=== PATIENT | male | born 1945 | race Asian ===

== ENCOUNTER 2020-09-22 17:19 | Inpatient (IN) | payer MEDICARE, OTHER ==
[~2020-09-22] VITALS: Ht 167.6 cm; Wt 67.8 kg
--- NOTE | 2020-09-22 17:24 | NUR ---
MANN MIRELES FROM [facility] DUE TO ABNORMAL LAB RESULTS: BUN/SXL=923/3.92 AND MIVDPY=112. TO ER BED 9, HOOKED TO NCR OPERATOR, BP CUFF AND POX. PATIENT NOTED W TRACHE HOOKED TO VENT WITH SETTINGS OF AC 10, VT 500, O2 40%, AND PEEP OF 5.0. CHANGED TO HOSP GOWN, PATIENT NOTED WITH JOSUÉ MIDLINE, PATENT AND FLUSHING, G-TUBE AND SPIVEY CATHETER. WARM BLANKET PROVIDED, PATIENT AAO x 0, BREATHING EVEN AND UNLABORED, NAD NOTED. DR SULLIVAN AT BEDSIDE
--- NOTE | 2020-09-22 17:49 | NUR ---
FOURCHETTE SEWER AT BEDSIDE
[2020-09-22 18:09] LABS: BASOPHILS % (AUTO) 0.2 % (0.0-2.0); EOSINOPHILS % (AUTO) 17.1 % (0.0-6.0); HEMATOCRIT 21 % (39-51); HEMOGLOBIN 7.1 g/dL (13.5-17.5); LYMPHOCYTES # (AUTO) 0.4 /CMM (0.8-4.8); LYMPHOCYTES % (AUTO) 4.5 % (20.0-44.0); MEAN CORPUSCULAR HGB CONC 33 g/dl (31.0-36.0); MEAN CORPUSCULAR VOLUME 79 fL (80-96); MONOCYTES # (AUTO) 0.8 /CMM (0.1-1.30); NEUTROPHILS # (AUTO) 6.7 /CMM (1.8-8.9); NEUTROPHILS % (AUTO) 70.2 % (43.0-81.0); PLATELET COUNT (AUTO) 459 /CMM (150-450); RED BLOOD CELL COUNT(AUTO) 2.71 MIL/uL (4.5-6.0); WHITE BLOOD COUNT (AUTO) 9.6 K/uL (4.3-11.0)
[2020-09-22 18:13] LABS: ALANINE AMINOTRANSFERASE 23 U/L (12-78); ALKALINE PHOSPHATASE 183 U/L (46-116); ASPARTATE AMINOTRANSFERASE 45 U/L (15-37); BILIRUBIN,TOTAL 0.2 mg/dL (0.2-1.0); CALCIUM, SERUM 9.6 mg/dL (8.5-10.1); CARBON DIOXIDE 22 mmol/L (21-32); CHLORIDE 87 mmol/L (98-107); CREATININE 4.4 mg/dL (0.6-1.3); GLUCOSE 98 mg/dL (74-106); POTASSIUM 4.9 mmol/L (3.5-5.1)
--- NOTE | 2020-09-22 18:17 | NUR ---
[facility] CALLED CONSERVATION PLANNER PAGED.
[2020-09-22 18:18] LABS: SODIUM SERUM 117 mmol/L (136-145); UREA NITROGEN, BLOOD 184 mg/dL (7-18)
[2020-09-22 18:19] LABS: ALBUMIN 0.9 g/dL (3.4-5.0)
[2020-09-22] MEDS ORDERED: IV NS 0.9% 1,000 ML IV ONE (18:30)
--- NOTE | 2020-09-22 18:42 | NUR ---
[facility] CALLED DIGITAL MEDIA REPRESENTATIVE PAGED SECOND TIME
[2020-09-22 19:07] LABS: BAND % (MANUAL) 2 % (0.0-5.0); EOSINOPHILS % (MANUAL) 18 % (0-4); LYMPHOCYTES % (MANUAL) 9 % (16-48); MONOCYTES % (MANUAL) 5 % (0-11.0); NEUTROPHILS % (MANUAL) 66 (42-76)
--- NOTE | 2020-09-22 19:07 | NUR ---
[facility] CALL GUIDE TOUR PAGED NEW PROVIDER IS CURRY
--- NOTE | 2020-09-22 19:21 | NUR ---
REPORT GIVEN TO TRIP MONTENEGRO FOR AMARJIT
--- NOTE | 2020-09-22 19:36 | NUR ---
ASSUMED CARE. PT AAOX1, PT TOLERATING CURRENT VENT SETTING AC-10, TV-500, FIO2-40%, PEEP-5. NO ACUTE DISTRESS NOTED, RESP EVEN AND UNLABORED. NO PAIN OR DISCOMFORT NOTED AT THIS TIME. PT REMAINS ON CARDIAC MONITORING, CONTINUOUS POX. CALL LIGHT WITHIN REACH. WILL CONTINUE TO MONITOR PT CLOSELY.
[2020-09-22] MEDS ORDERED: ACETAMINOPHEN 325 MG TABLET PO PRN (22:00)
[2020-09-22] MEDS ORDERED: ONDANSETRON HCL/PF 4 MG/2 ML VIAL IVP PRN (22:00)
[2020-09-22] MEDS ORDERED: MAGNESIUM HYDROXIDE 30 ML UDC PO PRN (22:00)
[2020-09-22] MEDS ORDERED: Z GUARD REMEDY 2 OZ OINT TP PRN (22:00)
[2020-09-22] MEDS ORDERED: ZOLPIDEM TARTRATE 5 MG TABLET PO PRN (22:00)
[2020-09-22] MEDS ORDERED: CEFTRIAXONE 1 G in IV D5W 50 ML IV STA (22:06)
--- NOTE | 2020-09-22 22:06 | NUR ---
TOTAL PT CARE DONE. REPOSITIONED PT FOR COMFORT. SUCTIONED PT ORALLY.
[2020-09-22] MEDS ORDERED: CEFTRIAXONE 1GM BAG (ER ONLY) 50 ML IV ONE (22:28)
[2020-09-22] MEDS ORDERED: HEPARIN SODIUM, PORCINE 5000 UNITS/1 ML VIAL ONE (22:29)
[2020-09-22 22:36] LABS: IRON, SERUM 24 ug/dl (50-175); TOTAL IRON BINDING CAPACITY 102 ug/dl (250-450)
[2020-09-22] MEDS: HEPARIN SODIUM, PORCINE 5000 UNITS/1 ML VIAL SQ SCH (22:39)
[2020-09-22 22:47] LABS: BILIRUBIN,URINE NEGATIVE (NEGATIVE); COLOR,URINE YELLOW (YELLOW); LEUKOCYTE ESTERASE ,URINE SMALL (NEGATIVE); NITRITE, URINE NEGATIVE (NEGATIVE); PROTEIN,URINE 30 mg/dl (NEGATIVE); UGLUCOSE NEGATIVE (NEGATIVE); UROBILINOGEN,URINE 0.2 EU/dL (0.2)
[2020-09-22 22:55] LABS: BACTERIA,URINE 2+ /HPF (None Seen); RBC,URINE 51-80 /HPF (0-2); SQUAMOUS EPITHELIAL CELL,UR Few /HPF (None Seen); WBC,URINE 51-80 /HPF (0-3)
[2020-09-22 22:56] LABS: MUCUS,URINE Few /LPF (None Seen); URINE AMORPHOUS URATE Many /HPF (None Seen)
--- NOTE | 2020-09-22 23:49 | NUR ---
RT pt received on mechanical vent with current settings. vent plugged in to red outlet. trached, portex 6 cuffed. spare trach and ambu bag at [facility]. no sob, no resp distress. trach secure. thick caceres secretions suctioned via trach. alarms on and audible. will continue to monitor.
[2020-09-23 00:56] LABS: BASOPHILS % (AUTO) 0.2 % (0.0-2.0); EOSINOPHILS % (AUTO) 15.8 % (0.0-6.0); HEMATOCRIT 23 % (39-51); HEMOGLOBIN 7.5 g/dL (13.5-17.5); LYMPHOCYTES # (AUTO) 0.6 /CMM (0.8-4.8); MEAN CORPUSCULAR HGB CONC 33 g/dl (31.0-36.0); MEAN CORPUSCULAR VOLUME 78 fL (80-96); MONOCYTES # (AUTO) 0.8 /CMM (0.1-1.30); MONOCYTES % (AUTO) 8.1 % (2.0-12.0); NEUTROPHILS # (AUTO) 6.8 /CMM (1.8-8.9); NEUTROPHILS % (AUTO) 69.9 % (43.0-81.0); PLATELET COUNT (AUTO) 474 /CMM (150-450); RED BLOOD CELL COUNT(AUTO) 2.92 MIL/uL (4.5-6.0); WHITE BLOOD COUNT (AUTO) 9.7 K/uL (4.3-11.0)
[2020-09-23 01:11] LABS: CALCIUM, SERUM 9.6 mg/dL (8.5-10.1); CARBON DIOXIDE 23 mmol/L (21-32); CHLORIDE 90 mmol/L (98-107); CREATININE 4.5 mg/dL (0.6-1.3); GLUCOSE 88 mg/dL (74-106); POTASSIUM 5.1 mmol/L (3.5-5.1)
[2020-09-23 01:15] LABS: SODIUM SERUM 120 mmol/L (136-145); UREA NITROGEN, BLOOD 186 mg/dL (7-18)
[2020-09-23 01:43] LABS: FERRITIN 2502 ng/mL (8-388)
--- NOTE | 2020-09-23 02:18 | NUR ---
PT RESTING QUIETLY, NO ACUTE DISTRESS NOTED, RESP EVEN AND UNLABORE. NO PAIN OR DISCOMFORT NOTED AT THIS TIME. CALL LIGHT WITHIN REACH. WILL CONTINUE TO MONITOR PT CLOSELY.
--- NOTE | 2020-09-23 03:50 | NUR ---
PT ASLEEP, NO ACUTE DISTRESS NOTED, RESP EVEN AND UNLABORED. CALL LIGHT WITHIN REACH.
[2020-09-23] MEDS: IV NS 0.9% 1,000 ML IV PRN ×2 (04:18→14:01)
--- NOTE | 2020-09-23 05:00 | NUR ---
REPOSITIONED PT FOR COMFORT. ORAL AND INLUINE SUCTIONED PT. NO PAIN OR DISCOMFORT NOTED. NO ACUTE DISTRESS NOTED, RESP EVEN AND UNLABORED. CALL LIGHT WIHTIN REACH.
[2020-09-23 05:35] LABS: BASOPHILS % (AUTO) 0.2 % (0.0-2.0); EOSINOPHILS % (AUTO) 16.5 % (0.0-6.0); HEMATOCRIT 22 % (39-51); HEMOGLOBIN 7.1 g/dL (13.5-17.5); LYMPHOCYTES # (AUTO) 0.5 /CMM (0.8-4.8); LYMPHOCYTES % (AUTO) 5.6 % (20.0-44.0); MEAN CORPUSCULAR HGB CONC 33 g/dl (31.0-36.0); MEAN CORPUSCULAR VOLUME 79 fL (80-96); MONOCYTES # (AUTO) 0.7 /CMM (0.1-1.30); MONOCYTES % (AUTO) 7.9 % (2.0-12.0); NEUTROPHILS # (AUTO) 6.5 /CMM (1.8-8.9); NEUTROPHILS % (AUTO) 69.8 % (43.0-81.0); PLATELET COUNT (AUTO) 445 /CMM (150-450); RED BLOOD CELL COUNT(AUTO) 2.74 MIL/uL (4.5-6.0); WHITE BLOOD COUNT (AUTO) 9.3 K/uL (4.3-11.0)
[2020-09-23 05:51] LABS: CHOLESTEROL 63 mg/dL (<200); HDL CHOLESTEROL 27 mg/dL (40-60); TRIGLYCERIDES 70 mg/dL (30-150)
[2020-09-23 05:52] LABS: ALANINE AMINOTRANSFERASE 25 U/L (12-78); ALKALINE PHOSPHATASE 140 U/L (46-116); ASPARTATE AMINOTRANSFERASE 45 U/L (15-37); BILIRUBIN,DIRECT 0.1 mg/dL (0.0-0.2); BILIRUBIN,TOTAL 0.3 mg/dL (0.2-1.0); CALCIUM, SERUM 8.9 mg/dL (8.5-10.1); CARBON DIOXIDE 20 mmol/L (21-32); CHLORIDE 91 mmol/L (98-107); CREATININE 4.6 mg/dL (0.6-1.3); GLUCOSE 79 mg/dL (74-106); MAGNESIUM 2.8 mg/dL (1.8-2.4); PHOSPHORUS 7.1 mg/dL (2.5-4.9); POTASSIUM 5.1 mmol/L (3.5-5.1); SODIUM SERUM 121 mmol/L (136-145)
[2020-09-23 05:55] LABS: ALBUMIN 0.9 g/dL (3.4-5.0); UREA NITROGEN, BLOOD 187 mg/dL (7-18)
[2020-09-23 06:02] LABS: LDL 36 mg/dL (0-99)
--- NOTE | 2020-09-23 07:49 | NUR ---
REPORT GIVEN TO AM SHIFT LAN THOMSON
[2020-09-23] MEDS ORDERED: HEPARIN SODIUM, PORCINE 5000 UNITS/1 ML VIAL ONE (08:31)
[2020-09-23] MEDS: HEPARIN SODIUM, PORCINE 5000 UNITS/1 ML VIAL SQ SCH (08:39)
--- NOTE | 2020-09-23 08:49 | NUR ---
PATIENT RESTING, VITALS STABLE. VENT SETTINGS TOLERATING WELL. CONTINUE ON IVF. NO DISTRESS NOTED.
--- NOTE | 2020-09-23 10:00 | NUR ---
PATIENT TURNED AND REPOSITIONED, NO DISTRESS NOTED.
[2020-09-23] MEDS ORDERED: PANTOPRAZOLE 40 MG VIAL IV SCH (14:00)
--- NOTE | 2020-09-23 14:01 | NUR ---
PATIENT TURNED AND REPOSITIONED, NO DISTRESS NOTED. PERICARE PROVIDED.
[2020-09-23] MEDS ORDERED: PANTOPRAZOLE 40 MG VIAL ONE (14:06)
--- NOTE | 2020-09-23 17:23 | NUR ---
PATIENT RESTING, IV FLUIDS INFUSING. NO DISTRESS NOTED.
--- NOTE | 2020-09-23 19:45 | NUR ---
ASSUMED CARE. PT AAOX1, O2 SAT 100%. PT TOLERATING CURRENT VENT SETTING AC-10, TV-500, FIO2-40%, PEEP-5. NO ACUTE DISTRESS NOTED, RESP EVEN AND UNLABORED. NO PAIN OR DISCOMFORT NOTED AT THIS TIME. PT REMAINS ON CARDIAC MONITORING, CONTINUOUS POX. CALL LIGHT WITHIN REACH. WILL CONTINUE TO MONITOR PT CLOSELY. REPOSITIONED PT FOR COMFORT.
--- NOTE | 2020-09-23 20:56 | NUR ---
TO PT CARE DONE. PERICARE PROVIDED. PATIENT TURNED AND REPOSITIONED, NO DISTRESS NOTED.
[2020-09-23] MEDS ORDERED: CEFTRIAXONE 1 G in IV D5W 50 ML IV SCH (21:00)
[2020-09-23] MEDS ORDERED: CEFEPIME 1 GM in IV D5W 50 ML IV ONE (22:00)
[2020-09-23] MEDS ORDERED: CEFEPIME 1 GM VIAL ONE (22:03)
--- NOTE | 2020-09-24 00:03 | NUR ---
PERICARE PROVIDED. PATIENT TURNED AND REPOSITIONED, NO DISTRESS NOTED.
--- NOTE | 2020-09-24 01:43 | NUR ---
RT pt received on mechanical vent with current settings. vent plugged in to red outlet. alarms on and audible. trached, portex 6 cuffed. spare trach and ambu bag at [facility]. trach secure. thick caceres secretions suctioned via trach. no sob, no resp distress. will continue to monitor.
--- NOTE | 2020-09-24 02:16 | NUR ---
PT ASLEEP, NO ACUTE DISTRESS NOTED, RESP EVEN AND UNLABORED. CALL LIGHT WITHIN REACH.
[2020-09-24] MEDS: IV NS 0.9% 1,000 ML IV PRN ×2 (04:59→19:40)
[2020-09-24 05:37] LABS: BASOPHILS % (AUTO) 0.1 % (0.0-2.0); EOSINOPHILS % (AUTO) 11.1 % (0.0-6.0); HEMATOCRIT 25 % (39-51); HEMOGLOBIN 8.2 g/dL (13.5-17.5); LYMPHOCYTES # (AUTO) 0.5 /CMM (0.8-4.8); LYMPHOCYTES % (AUTO) 4.7 % (20.0-44.0); MEAN CORPUSCULAR HGB CONC 33 g/dl (31.0-36.0); MEAN CORPUSCULAR VOLUME 79 fL (80-96); MONOCYTES # (AUTO) 0.5 /CMM (0.1-1.30); NEUTROPHILS # (AUTO) 8.4 /CMM (1.8-8.9); NEUTROPHILS % (AUTO) 79.1 % (43.0-81.0); PLATELET COUNT (AUTO) 567 /CMM (150-450); RED BLOOD CELL COUNT(AUTO) 3.18 MIL/uL (4.5-6.0); WHITE BLOOD COUNT (AUTO) 10.7 K/uL (4.3-11.0)
[2020-09-24 05:59] LABS: CALCIUM, SERUM 8.9 mg/dL (8.5-10.1); CARBON DIOXIDE 17 mmol/L (21-32); CHLORIDE 93 mmol/L (98-107); CREATININE 4.5 mg/dL (0.6-1.3); GLUCOSE 72 mg/dL (74-106); POTASSIUM 5.3 mmol/L (3.5-5.1); SODIUM SERUM 124 mmol/L (136-145)
[2020-09-24 06:00] LABS: PHOSPHORUS 7.9 mg/dL (2.5-4.9); UREA NITROGEN, BLOOD 185 mg/dL (7-18)
--- NOTE | 2020-09-24 07:27 | NUR ---
REPORT GIVEN TO AM SHIFT LAN STINSON.
[2020-09-24] MEDS ORDERED: SODIUM POLYSTYRENE SULFONATE 15 G/60 ML BOTTLE PO ONE (09:00)
[2020-09-24] MEDS ORDERED: FUROSEMIDE 100 MG/10 ML VIAL IV ONE (09:00)
--- NOTE | 2020-09-24 09:24 | NUR ---
PEDRO FROM WOUND CENTER AT BEDSIDE. PATIENT NOTED W R BUTTOCK, SACROCOCCYX AND R FOOT PRESSURE ULCER.
--- NOTE | 2020-09-24 10:00 | NUR ---
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 RECOMMEND SURGICAL AND DPM CONSULTS. DR GUY AND DR LEIGH NOTIFIED OF CONSULT REQUESTS. LOW AIRLOSS BED TO BE PLACED WHEN AVAILABLE. DISCUSSED SKIN PROTECTION WITH NURSING STAFF. IN AGREEMENT WITH PLAN OF CARE. Addendum: 09/24/20 at 1002 by PEDRO LI WNDNU Amended: Links added.
[2020-09-24] MEDS: DAKINS QUARTER STRENGTH (0.125%) 480 ML BOTTLE TOP SCH (10:19)
[2020-09-24] MEDS ORDERED: DOXA4TAB3 GT (10:21)
[2020-09-24] MEDS ORDERED: HYDR-4384 GT (10:21)
[2020-09-24] MEDS ORDERED: ACET325T53 GT (10:21)
[2020-09-24] MEDS ORDERED: CRAN3875 GT (10:21)
[2020-09-24] MEDS ORDERED: FERR325T23 GT (10:21)
[2020-09-24] MEDS ORDERED: DOCU-141 GT (10:21)
[2020-09-24] MEDS ORDERED: INSU100I4 SQ (10:21)
[2020-09-24] MEDS ORDERED: CARV12.5 GT (10:21)
[2020-09-24] MEDS ORDERED: NUT.237L67 GT (10:21)
[2020-09-24] MEDS ORDERED: EPOE40002 IJ (10:21)
[2020-09-24] MEDS ORDERED: COLL30OI TP (10:21)
[2020-09-24] MEDS ORDERED: NA P133E RC (10:21)
[2020-09-24] MEDS ORDERED: ZINC1CAP3 GT (10:21)
[2020-09-24] MEDS ORDERED: HEPA100D33 SUBCUT (10:21)
[2020-09-24] MEDS ORDERED: BISA10SU61 RC (10:21)
[2020-09-24] MEDS ORDERED: IPRA4AER IH ×2 (10:21)
[2020-09-24] MEDS ORDERED: NUTR1PAC14 GT (10:21)
[2020-09-24] MEDS ORDERED: NITR0.4T48 SL (10:21)
[2020-09-24] MEDS ORDERED: VIT1TABL46 GT (10:21)
[2020-09-24] MEDS ORDERED: MAGN400O6 GT (10:21)
[2020-09-24] MEDS ORDERED: AMIN887L GT (10:21)
[2020-09-24] MEDS ORDERED: FURO10SO2 GT (10:21)
[2020-09-24] MEDS ORDERED: ASCO500C17 GT (10:21)
[2020-09-24] MEDS ORDERED: CHLO118L4 MM (10:21)
[2020-09-24] MEDS ORDERED: AMLO5TAB4 GT (10:21)
[2020-09-24] MEDS ORDERED: CHOL200013 GT (10:21)
[2020-09-24] MEDS ORDERED: FUROSEMIDE 40 MG/4 ML VIAL ONE (10:31)
[2020-09-24] MEDS ORDERED: SODIUM POLYSTYRENE SULFONATE 15 G/60 ML BOTTLE ONE (10:32)
[2020-09-24] MEDS ORDERED: FAMOTIDINE/PF INJ 20 MG/2 ML VIAL IV ONE ×2 (10:32→21:04)
[2020-09-24] MEDS: FAMOTIDINE/PF INJ 20 MG/2 ML VIAL IV SCH ×2 (10:35→21:06)
--- NOTE | 2020-09-24 11:12 | NUR ---
PATIENT REPOSITIONED FOR CPMFORT.
--- NOTE | 2020-09-24 14:52 | NUR ---
patient repositioned for comfort
--- NOTE | 2020-09-24 17:56 | NUR ---
URINE OUTPUT 400CC.
--- NOTE | 2020-09-24 18:54 | NUR ---
PATIENT NOTED WITH BLACK WATERY STOOL.
--- NOTE | 2020-09-24 18:57 | NUR ---
PATIENT CLEANED. PROVIDED W NEW LINEN AND HOSP GOWN.
--- NOTE | 2020-09-24 19:39 | NUR ---
REPORT GIVEN TO ED RN FOR AMARJIT
--- NOTE | 2020-09-24 20:10 | NUR ---
URINE SAMPLE COLLECTED AND SENT TO LAB.
--- NOTE | 2020-09-24 20:14 | NUR ---
RT pt received on mechanical vent with current settings. trached, portex 6 cuffed. vent plugged in to red outlet. trach secure and patent. ambu bag and spare trach at bedside. alarms on and audible. small caceres thick secretions suctioned via trach. no sob, no resp distress. will continue to monitor. Addendum: 09/24/20 at 2015 by JETHRO LAWLER RT Amended: Links added.
[2020-09-24 20:27] LABS: BILIRUBIN,URINE NEGATIVE (NEGATIVE); COLOR,URINE YELLOW (YELLOW); LEUKOCYTE ESTERASE ,URINE NEGATIVE (NEGATIVE); NITRITE, URINE NEGATIVE (NEGATIVE); PROTEIN,URINE TRACE mg/dl (NEGATIVE); UGLUCOSE NEGATIVE (NEGATIVE); UROBILINOGEN,URINE 0.2 EU/dL (0.2)
[2020-09-24 20:34] LABS: BACTERIA,URINE 1+ /HPF (None Seen); COARSE GRANULAR CASTS,URINE Few /LPF (None Seen); SQUAMOUS EPITHELIAL CELL,UR Few /HPF (None Seen); WBC,URINE 0-2 /HPF (0-3)
[2020-09-24 20:35] LABS: EOSINOPHIL,URINE None Seen
[2020-09-24 20:38] LABS: CREATININE, URINE 25.9 MG/DL (30.0-125.0); URINE TOTAL PROTEIN 94.5 mg/dL (0-11.9)
[2020-09-24 21:36] LABS: YEAST,URINE Few /HPF (None Seen)
[2020-09-24] MEDS: CEFEPIME 1 GM in IV D5W 50 ML IV SCH (21:48)
[2020-09-25] MEDS: IV NS 0.9% 1,000 ML IV PRN ×3 (04:05→23:03)
--- NOTE | 2020-09-25 05:43 | NUR ---
PATIENT CLEANED. REPOSITIONED PT FOR COMFORT. PROVIDED W NEW LINEN AND HOSP GOWN. CALL LIGHT WITHIN REACH. WILL CONTINUE TO MONITOR PT CLOSELY.
--- NOTE | 2020-09-25 07:25 | NUR ---
REPORT GIVEN TO AM SHIFT LAN HEREDIA FOR AMARJIT.
[2020-09-25] MEDS: FAMOTIDINE/PF INJ 20 MG/2 ML VIAL IV SCH ×2 (08:27→20:40)
[2020-09-25] MEDS: HYDROCODONE/APAP 5/325MG TABLET PO PRN (08:27)
[2020-09-25] MEDS: DAKINS QUARTER STRENGTH (0.125%) 480 ML BOTTLE TOP SCH (08:27)
[2020-09-25] MEDS: NEPRO 1,000 ML BOTTLE GT PRN (11:00)
--- NOTE | 2020-09-25 11:30 | NUR ---
ADL CARE PROVIDED. PT KEPT CLEAN AND DRY AND COMFORTABLE. TURNED AND REPOSITIONED.
--- NOTE | 2020-09-25 12:00 | NUR ---
wound care done. tolerated well.
--- NOTE | 2020-09-25 15:08 | NUR ---
covid pcr done sent to lab
[2020-09-25] MEDS ORDERED: FAMOTIDINE/PF INJ 20 MG/2 ML VIAL IV ONE (20:20)
[2020-09-25] MEDS: CEFEPIME 1 GM in IV D5W 50 ML IV SCH (22:00)
--- NOTE | 2020-09-26 00:03 | NUR ---
TOTAL PT CARE DONE. REPOSITIONED PT FOR COMFORT. SUCTIONED PT ORALLY.
[2020-09-26 05:13] LABS: BASOPHILS % (AUTO) 0.2 % (0.0-2.0); EOSINOPHILS % (AUTO) 11.7 % (0.0-6.0); HEMATOCRIT 25 % (39-51); LYMPHOCYTES # (AUTO) 0.4 /CMM (0.8-4.8); LYMPHOCYTES % (AUTO) 3.7 % (20.0-44.0); MEAN CORPUSCULAR HGB CONC 32 g/dl (31.0-36.0); MEAN CORPUSCULAR VOLUME 81 fL (80-96); MONOCYTES # (AUTO) 0.7 /CMM (0.1-1.30); MONOCYTES % (AUTO) 5.5 % (2.0-12.0); NEUTROPHILS # (AUTO) 9.6 /CMM (1.8-8.9); NEUTROPHILS % (AUTO) 78.9 % (43.0-81.0); PLATELET COUNT (AUTO) 543 /CMM (150-450); WHITE BLOOD COUNT (AUTO) 12.2 K/uL (4.3-11.0)
[2020-09-26 05:56] LABS: CALCIUM, SERUM 8.3 mg/dL (8.5-10.1); CARBON DIOXIDE 11 mmol/L (21-32); CHLORIDE 99 mmol/L (98-107); CREATININE 4.3 mg/dL (0.6-1.3); POTASSIUM 4.8 mmol/L (3.5-5.1); SODIUM SERUM 130 mmol/L (136-145)
[2020-09-26 06:02] LABS: GLUCOSE 37 mg/dL (74-106); UREA NITROGEN, BLOOD 173 mg/dL (7-18)
--- NOTE | 2020-09-26 06:02 | NUR ---
lab called regarding bs-39. nandini nur dnp ,jose ramon aware with orders receievd. will carry out orders.
--- NOTE | 2020-09-26 06:10 | NUR ---
TOTAL PT CARE DONE. REPOSITIONED PT FOR COMFORT. SUCTIONED PT ORALLY.
[2020-09-26] MEDS ORDERED: DEXTROSE 50%-WATER 50 ML DISP.SYRIN IVP ONE (06:30)
--- NOTE | 2020-09-26 07:43 | NUR ---
Mc paul in [facility] - 09/26/20 at 0743 by IRVIN report given to am shift rn
--- NOTE | 2020-09-26 07:43 | NUR ---
report given to am shift maria t greene
[2020-09-26] MEDS: HYDROCODONE/APAP 5/325MG TABLET PO PRN (08:57)
[2020-09-26] MEDS: DAKINS QUARTER STRENGTH (0.125%) 480 ML BOTTLE TOP SCH (08:57)
[2020-09-26] MEDS: FAMOTIDINE/PF INJ 20 MG/2 ML VIAL IV SCH (08:57)
[2020-09-26] MEDS: IV NS 0.9% 1,000 ML IV PRN (10:06)
--- NOTE | 2020-09-26 10:27 | NUR ---
BS 71 Addendum: 09/26/20 at 1027 by DCABANOS BLOOD SUGAR CHECKED. 71, tube feeding running
--- NOTE | 2020-09-26 14:00 | NUR ---
L upper arm midline infiltrated. notified dr. jimenes per dr jimenes order another midline insertion. [employer] sugar refinery supervisor made aware,.
[2020-09-26 14:37] LABS: BASOPHILS % (AUTO) 0.4 % (0.0-2.0); EOSINOPHILS % (AUTO) 14.1 % (0.0-6.0); HEMATOCRIT 26 % (39-51); HEMOGLOBIN 8.1 g/dL (13.5-17.5); LYMPHOCYTES # (AUTO) 0.4 /CMM (0.8-4.8); LYMPHOCYTES % (AUTO) 2.9 % (20.0-44.0); MEAN CORPUSCULAR HGB CONC 31 g/dl (31.0-36.0); MEAN CORPUSCULAR VOLUME 81 fL (80-96); MONOCYTES # (AUTO) 0.6 /CMM (0.1-1.30); MONOCYTES % (AUTO) 4.6 % (2.0-12.0); NEUTROPHILS # (AUTO) 9.7 /CMM (1.8-8.9); PLATELET COUNT (AUTO) 526 /CMM (150-450); RED BLOOD CELL COUNT(AUTO) 3.21 MIL/uL (4.5-6.0); WHITE BLOOD COUNT (AUTO) 12.4 K/uL (4.3-11.0)
[2020-09-26 16:45] LABS: BAND % (MANUAL) 2 % (0.0-5.0); EOSINOPHILS % (MANUAL) 10 % (0-4); LYMPHOCYTES % (MANUAL) 7 % (16-48); MONOCYTES % (MANUAL) 1 % (0-11.0); NEUTROPHILS % (MANUAL) 80 (42-76)
--- NOTE | 2020-09-26 16:53 | NUR ---
per cost control supervisor midline nurse will be here tonight.
--- NOTE | 2020-09-26 17:40 | NUR ---
midline nurse by bedside
--- NOTE | 2020-09-26 17:50 | NUR ---
midline inserted on r upper arm. intact and patent and flushing well.
[2020-09-26] MEDS: CEFEPIME 1 GM in IV D5W 50 ML IV SCH (22:00)
[2020-09-26] MEDS ORDERED: FAMOTIDINE/PF INJ 20 MG/2 ML VIAL IV ONE (23:15)
[2020-09-26] MEDS: FAMOTIDINE (20 MG) 20 MG TABLET GT SCH (23:30)
[2020-09-26] MEDS ORDERED: FAMOTIDINE (20 MG) 20 MG TABLET ONE (23:36)
[2020-09-27] MEDS ORDERED: IPRATROPIUM NEB FS 0.5 MG/2.5 ML AMPUL.NEB NEB PRN (04:00)
[2020-09-27] MEDS ORDERED: ALBUTEROL FS 2.5 MG/0.5 ML VIAL.NEB NEB PRN (04:00)
[2020-09-27] MEDS ORDERED: ALBUTEROL FS 2.5 MG/0.5 ML VIAL.NEB ONE (04:01)
[2020-09-27] MEDS ORDERED: IPRATROPIUM NEB FS 0.5 MG/2.5 ML AMPUL.NEB ONE (04:01)
--- NOTE | 2020-09-27 06:31 | NUR ---
TOTAL PT CARE DONE. REPOSITIONED PT FOR COMFORT. SUCTIONED PT ORALLY. F/C OUTPUT 1100.
[2020-09-27] MEDS: IV NS 0.9% 1,000 ML IV PRN (07:14)
--- NOTE | 2020-09-27 07:25 | NUR ---
REPORT GIVEN TO AM SHIFT LAN WHITTINGTON
[2020-09-27] MEDS ORDERED: FAMOTIDINE/PF INJ 20 MG/2 ML VIAL IV ONE (08:07)
[2020-09-27] MEDS: DAKINS QUARTER STRENGTH (0.125%) 480 ML BOTTLE TOP SCH (08:07)
[2020-09-27] MEDS: FAMOTIDINE (20 MG) 20 MG TABLET GT SCH ×2 (08:07→21:35)
--- NOTE | 2020-09-27 09:30 | NUR ---
turned and repositioned all am meds administered. no ase noted.
[2020-09-27 12:07] LABS: BASOPHILS % (AUTO) 0.2 % (0.0-2.0); HEMATOCRIT 24 % (39-51); HEMOGLOBIN 7.5 g/dL (13.5-17.5); LYMPHOCYTES # (AUTO) 0.4 /CMM (0.8-4.8); LYMPHOCYTES % (AUTO) 2.5 % (20.0-44.0); MEAN CORPUSCULAR HGB CONC 31 g/dl (31.0-36.0); MEAN CORPUSCULAR VOLUME 81 fL (80-96); MONOCYTES # (AUTO) 0.7 /CMM (0.1-1.30); MONOCYTES % (AUTO) 4.4 % (2.0-12.0); NEUTROPHILS # (AUTO) 12.4 /CMM (1.8-8.9); NEUTROPHILS % (AUTO) 82.9 % (43.0-81.0); PLATELET COUNT (AUTO) 455 /CMM (150-450); RED BLOOD CELL COUNT(AUTO) 2.95 MIL/uL (4.5-6.0)
--- NOTE | 2020-09-27 13:00 | NUR ---
adl care provided. wound care done. linens changed. pt kept clean and dry and comfortable.
[2020-09-27 13:48] LABS: ALANINE AMINOTRANSFERASE 25 U/L (12-78); ALKALINE PHOSPHATASE 153 U/L (46-116); ASPARTATE AMINOTRANSFERASE 71 U/L (15-37); BILIRUBIN,TOTAL 0.2 mg/dL (0.2-1.0); CALCIUM, SERUM 7.8 mg/dL (8.5-10.1); CARBON DIOXIDE 15 mmol/L (21-32); CHLORIDE 103 mmol/L (98-107); CREATININE 4.1 mg/dL (0.6-1.3); GLUCOSE 97 mg/dL (74-106); MAGNESIUM 2.5 mg/dL (1.8-2.4); PHOSPHORUS 7.3 mg/dL (2.5-4.9); POTASSIUM 3.7 mmol/L (3.5-5.1); SODIUM SERUM 134 mmol/L (136-145); TOTAL PROTEIN, SERUM 6.6 g/dL (6.4-8.2)
[2020-09-27 13:55] LABS: ALBUMIN 0.9 g/dL (3.4-5.0); UREA NITROGEN, BLOOD 158 mg/dL (7-18)
--- NOTE | 2020-09-27 15:01 | NUR ---
repostioned emptied mckenzie 600cc
--- NOTE | 2020-09-27 17:29 | NUR ---
pt noted with agonal breathing. rt notified. satting at 97%. dr huntley made aware. obtained order for stat abg.
[2020-09-27 17:42] LABS: ABG BASE EXCESS -12.9 mmol/L; ABG OXYGEN SATURATION 96.8 % (92.0-98.5); ABG PCO2 25.7 mmHg (35.0-45.0); ABG PH 7.295 (7.350-7.450); AaDO2 150.6 mmHg; COHb 0.2 % (0.5-1.5); MetHb 0.5 % (0.0-1.5); O2Hb 96.1 % (94.0-97.0); SITE, ABG Right Radial; VENT MODE, BG AC 10 500+5 40%
--- NOTE | 2020-09-27 18:14 | NUR ---
abg results relayed to roseanna bonillao given per , just monitor.
--- NOTE | 2020-09-27 21:20 | NUR ---
RT pt received on mechanical vent with current settings. trached, portex 6 cuffed. vent plugged in to red outlet. trach secure and patent. ambu bag and spare trach at bedside. alarms on and audible. small caceres thick secretions suctioned via trach. no sob, no resp distress. will continue to monitor.
[2020-09-27] MEDS ORDERED: FAMOTIDINE (20 MG) 20 MG TABLET ONE (21:31)
[2020-09-27] MEDS ORDERED: CEFEPIME 1 GM VIAL ONE (21:37)
[2020-09-27] MEDS: CEFEPIME 1 GM in IV D5W 50 ML IV SCH (21:47)
--- NOTE | 2020-09-27 23:12 | NUR ---
PT STILL HAVING AGONAL BREATHING. MARY MUÑOZ DNP MADE AWARE AND EVALUATED PT AT BEDSIDE WITH ORDERS TO MONITOR PT CLOSELY. BP-82/43, HR-79, O2 SAT-98%. MARY MUÑOZ AWARE OF ABG RESULT AND THAT PT WAS SEEN BY DR. BRITTON/DR. JACOME EARLIER DURING THE DAY.
--- NOTE | 2020-09-28 03:15 | NUR ---
MARY MUÑOZ DNP AT [facility] TO RE-EVAL PT WITH ORDERS TO START LEVOPHED DRIP BP-87/49, RR-16, 02 SAT-96%
[2020-09-28] MEDS ORDERED: LORAZEPAM INJ 2 MG/ML VIAL IV PRN (04:00)
--- NOTE | 2020-09-28 04:09 | NUR ---
LEVOPHED DRIP HELD AT THIS TIME. BP-110/35, HR-96. O2 SAT-96%. MARY MUÑOZ DNP MADE AWARE.
--- NOTE | 2020-09-28 04:34 | NUR ---
Mc paul in EDM - 09/28/20 at 0436 by IRVIN MARY MUÑOZ DNP AT [facility] TO RE-EVAL PT WITH ORDERS TO START LEVOPHED DRIP BP-87/49, RR-16, 02 SAT-96%
--- NOTE | 2020-09-28 05:22 | NUR ---
PT RESTING QUIETLY, NO PAIN OR DISCOMFORT NOTED AT THIS TIME. CALL LIGHT WITHIN REACH. WILL CONTINUE TO MONITOR PT CLOSELY.
[2020-09-28 05:24] LABS: HEMATOCRIT 25 % (39-51); HEMOGLOBIN 7.8 g/dL (13.5-17.5); LYMPHOCYTES % (AUTO) 1.8 % (20.0-44.0); MEAN CORPUSCULAR HGB CONC 31 g/dl (31.0-36.0); MEAN CORPUSCULAR VOLUME 81 fL (80-96); MONOCYTES % (AUTO) 3.5 % (2.0-12.0); PLATELET COUNT (AUTO) 426 /CMM (150-450); RED BLOOD CELL COUNT(AUTO) 3.13 MIL/uL (4.5-6.0); WHITE BLOOD COUNT (AUTO) 13.9 K/uL (4.3-11.0)
[2020-09-28 05:25] LABS: BASOPHILS % (AUTO) 0.2 % (0.0-2.0); EOSINOPHILS % (AUTO) 11.5 % (0.0-6.0); LYMPHOCYTES # (AUTO) 0.3 /CMM (0.8-4.8); MONOCYTES # (AUTO) 0.5 /CMM (0.1-1.30); NEUTROPHILS # (AUTO) 11.5 /CMM (1.8-8.9)
[2020-09-28 05:46] LABS: CALCIUM, SERUM 7.8 mg/dL (8.5-10.1); CARBON DIOXIDE 14 mmol/L (21-32); CHLORIDE 107 mmol/L (98-107); CREATININE 3.9 mg/dL (0.6-1.3); GLUCOSE 120 mg/dL (74-106); POTASSIUM 3.8 mmol/L (3.5-5.1); SODIUM SERUM 136 mmol/L (136-145)
--- NOTE | 2020-09-28 05:48 | NUR ---
BUN 156
[2020-09-28 05:52] LABS: UREA NITROGEN, BLOOD 156 mg/dL (7-18)
--- NOTE | 2020-09-28 06:43 | NUR ---
F/C OUTPUT = 400ML'S
[2020-09-28] MEDS: IV NS 0.9% 1,000 ML IV PRN ×2 (06:46→16:22)
[2020-09-28] MEDS: NEPRO 1,000 ML BOTTLE GT PRN (06:50)
[2020-09-28] MEDS: NOREPINEPHRINE 8 MG in IV NS 0.9% 242 ML IV PRN ×2 (06:55→19:44)
--- NOTE | 2020-09-28 06:56 | NUR ---
LEVOPHED DRIP STARTED AT 0.1MCG/KG/MIN ON THE FINA MIDLINE. BP 85/27, HR-63, RR-16, 02SAT-97%.
--- NOTE | 2020-09-28 07:15 | NUR ---
REPORT GIVEN TO AM SHIFT LAN THOMSON.
--- NOTE | 2020-09-28 08:19 | NUR ---
DR JACOME AT BEDSIDE, SUCTION DONE BY RN.
[2020-09-28] MEDS: DAKINS QUARTER STRENGTH (0.125%) 480 ML BOTTLE TOP SCH (09:03)
[2020-09-28] MEDS: FAMOTIDINE (20 MG) 20 MG TABLET GT SCH ×2 (09:06→20:40)
--- NOTE | 2020-09-28 09:07 | NUR ---
BEATER TENDER AT BEDSIDE
[2020-09-28] MEDS: HYDROCORTISONE SOD SUCCINATE 100 MG/2 ML VIAL IV SCH ×3 (10:33→20:38)
--- NOTE | 2020-09-28 12:42 | NUR ---
PATIENT IN BED. HOOKED TO MONITOR. VSS. WILL CONTINUE TO MONITOR
[2020-09-28] MEDS: CEFEPIME 1 GM in IV D5W 50 ML IV SCH (13:24)
--- NOTE | 2020-09-28 14:56 | NUR ---
SUCTIONED PATIENT. REPOSITIONED FOR COMFORT
--- NOTE | 2020-09-28 17:47 | NUR ---
CLEANED PATIENT. CHANGED TO NEW LINEN AND HOSP GOWN.
--- NOTE | 2020-09-28 19:24 | NUR ---
ASSUMED CARE. RECEIVED REPORT FROM AM SHIFT LAN STINSON. O2 SAT 100%. PT TOLERATING CURRENT VENT SETTING AC-10, TV-500, FIO2-40%, PEEP-5. NO ACUTE DISTRESS NOTED, RESP EVEN AND UNLABORED. PT REMAINS ON LEVOPHED DRIP @ 0.1MCG/KG/MIN. ON G-TUBE FEEDING (NEPHRO) @ 30ML'S/HR ORDERED. NO PAIN OR DISCOMFORT NOTED AT THIS TIME. PT REMAINS ON CARDIAC MONITORING, CONTINUOUS POX. CALL LIGHT WITHIN REACH. WILL CONTINUE TO MONITOR PT CLOSELY. REPOSITIONED PT FOR COMFORT.
[2020-09-28] MEDS ORDERED: HYDROCORTISONE SOD SUCCINATE 100 MG/2 ML VIAL ONE (20:29)
[2020-09-28] MEDS ORDERED: FAMOTIDINE (20 MG) 20 MG TABLET ONE (20:29)
--- NOTE | 2020-09-28 21:03 | NUR ---
SUCTIONED PATIENT. REPOSITIONED FOR COMFORT
[2020-09-29] VITALS (12 sets, daily range): BP systolic 113–134; BP diastolic 38–79
[2020-09-29] MEDS: IV NS 0.9% 1,000 ML IV PRN ×3 (00:28→21:05)
[2020-09-29] MEDS: CEFEPIME 1 GM in IV D5W 50 ML IV SCH ×2 (00:30→12:34)
--- NOTE | 2020-09-29 01:17 | NUR ---
Note beverly in ED - 09/29/20 at 0127 by IRVIN PT RESTING QUIETLY, TOLERATIG CURRENT BIPAP SETTING AT THIS TIME. NO ACUTE DISTRESS NOTED, RESP EVEN AND UNLABORE. NO PAIN OR DISCOMFORT NOTED AT THIS TIME. CALL LIGHT WITHIN REACH. WILL CONTINUE TO MONITOR PT CLOSELY.
[2020-09-29] MEDS ORDERED: HYDROCORTISONE SOD SUCCINATE 100 MG/2 ML VIAL ONE (05:19)
[2020-09-29] MEDS: HYDROCORTISONE SOD SUCCINATE 100 MG/2 ML VIAL IV SCH (05:21)
[2020-09-29 05:33] LABS: BASOPHILS % (AUTO) 0.1 % (0.0-2.0); HEMATOCRIT 32 % (39-51); HEMOGLOBIN 9.8 g/dL (13.5-17.5); LYMPHOCYTES # (AUTO) 0.3 /CMM (0.8-4.8); LYMPHOCYTES % (AUTO) 1.6 % (20.0-44.0); MEAN CORPUSCULAR HGB CONC 31 g/dl (31.0-36.0); MEAN CORPUSCULAR VOLUME 83 fL (80-96); MONOCYTES # (AUTO) 0.3 /CMM (0.1-1.30); MONOCYTES % (AUTO) 1.5 % (2.0-12.0); NEUTROPHILS # (AUTO) 16.2 /CMM (1.8-8.9); NEUTROPHILS % (AUTO) 96.8 % (43.0-81.0); PLATELET COUNT (AUTO) 490 /CMM (150-450); RED BLOOD CELL COUNT(AUTO) 3.86 MIL/uL (4.5-6.0); WHITE BLOOD COUNT (AUTO) 16.8 K/uL (4.3-11.0)
[2020-09-29 05:46] LABS: CARBON DIOXIDE 15 mmol/L (21-32); CHLORIDE 108 mmol/L (98-107); CREATININE 3.8 mg/dL (0.6-1.3); GLUCOSE 162 mg/dL (74-106); POTASSIUM 4.3 mmol/L (3.5-5.1); SODIUM SERUM 137 mmol/L (136-145)
[2020-09-29 05:47] LABS: UREA NITROGEN, BLOOD 151 mg/dL (7-18)
--- NOTE | 2020-09-29 06:02 | NUR ---
CLEANED PATIENT. CHANGED TO NEW LINEN AND HOSP GOWN.
--- NOTE | 2020-09-29 07:14 | NUR ---
REPORT GIVEN TO AM SHIFT LAN PATTERSON
--- NOTE | 2020-09-29 07:17 | NUR ---
RECEIVED REPORT FROM MOLD BURNER FOR AMARJIT. PT IS AAOX0, ON VENT VIA TRACH, V/S STABLE, WITH ONGOING IVF AND LEVOPHED TRANSFUSING WELL, KEPT RESTED AND COMFORTABLE. WILL CONTINUE TO MONITOR.
[2020-09-29] MEDS: DAKINS QUARTER STRENGTH (0.125%) 480 ML BOTTLE TOP SCH (09:05)
[2020-09-29] MEDS: FAMOTIDINE (20 MG) 20 MG TABLET GT SCH ×2 (09:05→21:37)
--- NOTE | 2020-09-29 11:19 | NUR ---
report given kirk live at icu
--- NOTE | 2020-09-29 11:20 | NUR ---
REPORT GIVEN TO RN COURTNEY OF ICU FOR AMARJIT. WITH ONGOING NOREPI TITRATE TO EFFECT.
--- NOTE | 2020-09-29 11:45 | NUR ---
RN INITIAL NOTES RECEIVED PT ON VENT, TRACH IN PLACE. NO RESPIRATORY DISTRESS NOTED. CONNECTED TO MONITOR. FINA MIDLINE IN PLACE. IVF INFUSING. ON LEVOPHED AT 0.1MCG/KG/MIN. WILL CLOSELY MONITOR BP. G-TUBE IN PLACE. TOLERATING TUBE FEEDING WELL. SKIN ASSESSMENT DONE. PICTURE TAKEN AND PLACED IN THE CHART. SPIVEY IN PLACE. BLE ELEVATED. WILL MONITOR
--- NOTE | 2020-09-29 18:27 | NUR ---
RN CLOSING NOTES NO SIGNIFICANT CHANGE NOTED. NO RESPIRATORY DISTRESS NOTED. NO SIGNS OF PAIN NOTED. IVF INFUSING. TOLERATING TUBE FEEDING WELL. TX PROVIDED ORDERED. BLE ELEVATED. WILL ENDORSE FOR CONTINUITY OF CARE
[2020-09-30] VITALS (13 sets, daily range): BP systolic 105–156; BP diastolic 49–95
[2020-09-30 04:21] LABS: BASOPHILS % (AUTO) 0.2 % (0.0-2.0); EOSINOPHILS % (AUTO) 0.1 % (0.0-6.0); HEMATOCRIT 25 % (39-51); HEMOGLOBIN 7.8 g/dL (13.5-17.5); LYMPHOCYTES # (AUTO) 0.4 /CMM (0.8-4.8); LYMPHOCYTES % (AUTO) 3.5 % (20.0-44.0); MEAN CORPUSCULAR HGB CONC 31 g/dl (31.0-36.0); MEAN CORPUSCULAR VOLUME 81 fL (80-96); MONOCYTES # (AUTO) 0.8 /CMM (0.1-1.30); MONOCYTES % (AUTO) 6.9 % (2.0-12.0); NEUTROPHILS % (AUTO) 89.3 % (43.0-81.0); PLATELET COUNT (AUTO) 357 /CMM (150-450); RED BLOOD CELL COUNT(AUTO) 3.06 MIL/uL (4.5-6.0); WHITE BLOOD COUNT (AUTO) 11.2 K/uL (4.3-11.0)
[2020-09-30] MEDS: IV NS 0.9% 1,000 ML IV PRN ×2 (04:30→13:36)
[2020-09-30 04:52] LABS: CALCIUM, SERUM 7.8 mg/dL (8.5-10.1); CARBON DIOXIDE 13 mmol/L (21-32); CHLORIDE 110 mmol/L (98-107); CREATININE 3.7 mg/dL (0.6-1.3); GLUCOSE 104 mg/dL (74-106); POTASSIUM 3.8 mmol/L (3.5-5.1); SODIUM SERUM 139 mmol/L (136-145)
[2020-09-30 04:53] LABS: UREA NITROGEN, BLOOD 145 mg/dL (7-18)
[2020-09-30 05:43] LABS: ABG BASE EXCESS -13.3 mmol/L; ABG OXYGEN SATURATION 94.7 % (92.0-98.5); ABG PCO2 27.4 mmHg (35.0-45.0); ABG PH 7.269 (7.350-7.450); ABG PO2 80.7 mmHg (75.0-100.0); COHb 0.3 % (0.5-1.5); MetHb 0.2 % (0.0-1.5); O2Hb 94.2 % (94.0-97.0); PEEP,BG 5 cm H2O; SITE, ABG Right Radial; VENT MODE, BG AC 10 500 40% +5; VT, ABG 500 mL
[2020-09-30] MEDS: FAMOTIDINE (20 MG) 20 MG TABLET GT SCH ×2 (08:49→21:22)
[2020-09-30] MEDS ORDERED: LORAZEPAM INJ 2 MG/ML VIAL IV PRN (09:30)
[2020-09-30] MEDS: DAKINS QUARTER STRENGTH (0.125%) 480 ML BOTTLE TOP SCH (10:07)
[2020-09-30] MEDS: CITRIC ACID/SODIUM CITRATE (BICITRA)15 ML UDC PO SCH ×4 (10:20→21:22)
--- NOTE | 2020-09-30 11:20 | NUR ---
RN NOTES RECEIVED REPORT FROM ICU NURSE. PATIENT IS ON TRACH AND VENT DEPENDENT AT THE PRESCRIBED SETTING. NONVERBAL. NO SIGN AND SYMPTOM OF PAIN NOTED. V/S BP 100/59 P 73 TEMP 98 SAO2 93. WILL CONTINUE TO MONITOR.
--- NOTE | 2020-09-30 11:30 | NUR ---
RN NOTES PT TRANSFERRED TO 329. PT ON VENT, TRACH IN PLACE. NO RESPIRATORY DISTRESS NOTED. NO SIGNS OF PAIN NOTED. PEG IN PLACE. ON TUBE FEEDING. IVF INFUSING. SPIVEY IN PLACE. PT IN STABLE CONDITION. LAN ATKINSON TOOK OVER PT'S CARE
[2020-09-30] MEDS: NEPRO 1,000 ML BOTTLE GT PRN (15:43)
--- NOTE | 2020-09-30 18:43 | NUR ---
TELE/RN CLOSING NOTES PATIENT IS ON BED. NONVERBAL. PATIENT IS ON TRACH AND VENT DEPENDENT AT THE PRESCRIBED SETTINGS, SATURATION 97%. GTUBE FEEDING WAS IN PLACED AT THE PRESCRIBED DOSE. PATIENT IN NO APPARENT RESPIRATORY DISTRESS NOTED. NO COMPLAINED OF PAIN AT THIS TIME. TELE MONITOR READING SINUS RHYTHM 68 BPM. IV ACCESS AT RIGHT UPPER MIDLINE PATENT AND INTACT. SEEN AND EXAMINED BY MD WITH ORDERS MADE AND CARRIED OUT. ALL DUE MEDICATIONS WAS GIVEN. SAFETY PRECAUTIONS WAS IN IN PLACED. SIDERAILS UP X2. BED IN LOWEST POSITION AND LOCKED. CALL LIGHT WITHIN REACH. WILL ENDORSED TO ACCOUNTS PAYABLE PAYROLL COORDINATOR FOR AMARJIT.
--- NOTE | 2020-09-30 19:30 | NUR ---
MS RN OPENING NOTES RECEIVED PATIENT IN BED NON-VERBAL, NO S/SX OF ACUTE RESPIRATORY DISTRESS NOTED. NO PAIN OR DISCOMFORT NOTED. IV ACCESS ON FINA MIDLINE PATENT AND INTACT RUNNING @125ML/HR. ON GTF NEPHRO @30ML/HR. KEPT CLEAN AND DRY. SAFETY PRECAUTION IN PLACE AND MAINTAINED AT ALL TIMES. BED IN LOWEST LOCKED POSITION, HOB ELEVATED, SIDE RAILS UP X 2, CALL LIGHT AND TABLE WITHIN REACH. WILL CONTINUE TO MONITOR. Addendum: 10/01/20 at 0505 by SUJATHA MIJARES RN ON PEG TUBE PATENT AND INTACT.
[2020-10-01] VITALS (9 sets, daily range): BP systolic 90–132; BP diastolic 49–114
[2020-10-01] MEDS: IV NS 0.9% 1,000 ML IV PRN ×2 (01:50→11:15)
--- NOTE | 2020-10-01 06:05 | NUR ---
MS RN NOTE: RELAYED TO ASSISTANT ACCOUNTING MANAGER NARGIS REGARDING ABG CRITICAL LAB RESULTS PH 7.02, PCO2-46, PO2-85, HCO3-11. ASSISTANT ACCOUNTING MANAGER NARGIS ORDERED TO INCREASE O2 ON MECHANICAL VENTILATOR. CALLED RT SPOKE WITH JONI STATED HE WILL DO IT NOW. WILL ENDORSE TO THE DAY SHIFT NURSE FOR CONTINUITY OF CARE.
[2020-10-01 06:11] LABS: ABG BASE EXCESS -17.9 mmol/L; ABG OXYGEN SATURATION 92.2 % (92.0-98.5); ABG PH 7.026 (7.350-7.450); ABG PO2 85.2 mmHg (75.0-100.0); AaDO2 147.1 mmHg; COHb 0.2 % (0.5-1.5); MetHb 0.3 % (0.0-1.5); O2Hb 91.7 % (94.0-97.0); PEEP,BG 5 cm H2O; SITE, ABG Right Radial; VT, ABG 500 mL
--- NOTE | 2020-10-01 06:59 | NUR ---
MS RN CLOSING NOTES PATIENT IN BED AWAKE, NON-VERBAL, NO S/SX OF ACUTE RESPIRATORY DISTRESS NOTED. NO PAIN OR DISCOMFORT NOTED. IV ACCESS ON FINA MIDLINE PATENT AND INTACT RUNNING @125ML/HR. ON PEG TUBE PATENT AND INTACT. ON NEPHRO @30ML/HR INFUSING WELL. KEPT CLEAN AND DRY. SAFETY PRECAUTIONS IN PLACE AND MAINTAINED AT ALL TIMES. BED IN LOWEST LOCKED POSITION, HOB ELEVATED, SIDE RAILS UP X 2, CALL LIGHT AND TABLE WITHIN REACH. WILL ENDORSE TO DAY SHIFT NURSE FOR CONTINUITY OF CARE.
[2020-10-01 07:15] LABS: BASOPHILS % (AUTO) 0.4 % (0.0-2.0); HEMATOCRIT 25 % (39-51); HEMOGLOBIN 7.5 g/dL (13.5-17.5); LYMPHOCYTES # (AUTO) 0.4 /CMM (0.8-4.8); LYMPHOCYTES % (AUTO) 7.5 % (20.0-44.0); MEAN CORPUSCULAR HGB CONC 30 g/dl (31.0-36.0); MEAN CORPUSCULAR VOLUME 85 fL (80-96); MONOCYTES # (AUTO) 0.5 /CMM (0.1-1.30); NEUTROPHILS # (AUTO) 4.4 /CMM (1.8-8.9); NEUTROPHILS % (AUTO) 80.1 % (43.0-81.0); PLATELET COUNT (AUTO) 228 /CMM (150-450); WHITE BLOOD COUNT (AUTO) 5.5 K/uL (4.3-11.0)
[2020-10-01 07:33] LABS: CALCIUM, SERUM 7.6 mg/dL (8.5-10.1); CARBON DIOXIDE 14 mmol/L (21-32); CHLORIDE 111 mmol/L (98-107); CREATININE 3.7 mg/dL (0.6-1.3); GLUCOSE 129 mg/dL (74-106); POTASSIUM 3.7 mmol/L (3.5-5.1); SODIUM SERUM 141 mmol/L (136-145)
[2020-10-01 07:54] LABS: UREA NITROGEN, BLOOD 144 mg/dL (7-18)
--- NOTE | 2020-10-01 08:00 | NUR ---
received pt. in am,vent settings unchanged.trach in place. monitoring closely.
[2020-10-01] MEDS: FAMOTIDINE (20 MG) 20 MG TABLET GT SCH ×2 (10:56→20:40)
[2020-10-01] MEDS: CITRIC ACID/SODIUM CITRATE (BICITRA)15 ML UDC PO SCH ×4 (10:56→21:27)
[2020-10-01] MEDS: DAKINS QUARTER STRENGTH (0.125%) 480 ML BOTTLE TOP SCH (10:58)
[2020-10-01 13:55] LABS: BAND % (MANUAL) 1 % (0.0-5.0); EOSINOPHILS % (MANUAL) 4 % (0-4); LYMPHOCYTES % (MANUAL) 2 % (16-48); MONOCYTES % (MANUAL) 14 % (0-11.0); NEUTROPHILS % (MANUAL) 79 (42-76)
[2020-10-01] MEDS ORDERED: Sodium Bicarbonate 150 MEQ in IV D5W 1,000 ML IV PRN (15:00)
--- NOTE | 2020-10-01 16:30 | NUR ---
bicarbonate iv hung and bicarbonate bolus to be hung.
[2020-10-01] MEDS ORDERED: NS 0.9% IV ONE (17:00)
[2020-10-01] MEDS ORDERED: SODIUM BICARBONATE IV ONE (17:00)
[2020-10-01] MEDS ORDERED: Sodium Bicarbonate 50 MEQ/50 ML VIAL IV ONE (17:00)
--- NOTE | 2020-10-01 19:00 | NUR ---
abg's to be called to dr. maciel by resp. therapist.eve. live to follow up.
[2020-10-01 19:28] LABS: ABG BASE EXCESS -14.8 mmol/L; ABG OXYGEN SATURATION 90.4 % (92.0-98.5); ABG PCO2 33.8 mmHg (35.0-45.0); ABG PO2 67.5 mmHg (75.0-100.0); AaDO2 178.8 mmHg; COHb 0.3 % (0.5-1.5); MetHb 0.2 % (0.0-1.5); O2Hb 89.9 % (94.0-97.0); SITE, ABG Left Radial; VENT MODE, BG AC 22 550 40% +5
--- NOTE | 2020-10-01 19:35 | NUR ---
TELE/ RELIEF NURSE NOTES PER DR. DUNN NOTIFY IF PH IS BELOW 7.25. MOST RECENT ABG REPORT TAKEN AT 1925 REPORTED PH [address] DUNN AWARE ORDERED TO INCREASE RR TO 28, TITRATE TO MAINTAIN SATURATION OVER 90%, ABG AND XCHEST IN AM. MADE RT AWARE. AND ORDER FOLLOWED THROUGH.
--- NOTE | 2020-10-01 20:00 | NUR ---
RN NOTES RECEIVED PATIENT IN BED NON-VERBAL, NO S/SX OF ACUTE RESPIRATORY DISTRESS NOTED. NO PAIN OR DISCOMFORT NOTED. IV ACCESS ON FINA MIDLINE PATENT AND INTACT. ON PEG TUBE PATENT INTACT, NEPHRO @30ML/HR. SAFETY PRECAUTION IN PLACE AND MAINTAINED. WILL CONTINUE TO MONITOR.
[2020-10-02] VITALS (7 sets, daily range): BP systolic 89–114; BP diastolic 44–73
--- NOTE | 2020-10-02 00:05 | NUR ---
RN NOTES: NOTIFIED DR. BARILLAS BUN- 144, CREATININE - 3.7, AND BS 147 . CONCERNED ABOUT FLUID OVERLOAD. PT HAS APPOX 40ML OF OUTPUT THROUGHOUT SHIFT WHILE ON GTUBE FEEDING AND IV BICARB. PER DR. BARILLAS OKAY TO HOLD THE G-TUBE FEEDING UNTIL AM. AWAITING FOR NEPHRO CONSULT IN AM. ORDER RECEIVED AND CARRIED OUT
[2020-10-02 04:46] LABS: ABG BASE EXCESS -14.3 mmol/L; ABG OXYGEN SATURATION 91.1 % (92.0-98.5); ABG PCO2 29.3 mmHg (35.0-45.0); ABG PH 7.229 (7.350-7.450); ABG PO2 69.2 mmHg (75.0-100.0); AaDO2 182.3 mmHg; MetHb 0.2 % (0.0-1.5); O2Hb 90.9 % (94.0-97.0); SITE, ABG Left Radial; VENT MODE, BG AC28 VT550 40% PEEP+5
--- NOTE | 2020-10-02 08:00 | NUR ---
RN OPENING NOTE RECEIVED PATIENT RESTING IN BED. PATIENT IS NON-VERBAL. PATIENT IS TELE WITH SB. GT FEEDING CURRENTLY ON HOLD D/T INCREASED EDEMA. CONTINUES ON VENT WITH PATIENT TOLERATING SETTINGS WELL. CALL LIGHT WITHIN REACH. SAFETY CHECKS AND PRECAUTIONS MAINTAINED. WILL CONTINUE TO MONITOR.
[2020-10-02] MEDS: DAKINS QUARTER STRENGTH (0.125%) 480 ML BOTTLE TOP SCH (09:11)
[2020-10-02] MEDS: CITRIC ACID/SODIUM CITRATE (BICITRA)15 ML UDC PO SCH ×4 (09:11→20:40)
[2020-10-02] MEDS: FAMOTIDINE (20 MG) 20 MG TABLET GT SCH ×2 (09:11→20:40)
--- NOTE | 2020-10-02 09:45 | NUR ---
CONE MARKER NOTE SPOKE WITH DR. DUNN, AND PER MD ORDER TO CHANGE IVF TO D5W 3AMPS 150 MEQS SODIUM BICARBONATE 70ML/HR PRN.
[2020-10-02] MEDS ORDERED: Sodium Bicarbonate 150 MEQ in IV D5W 1,000 ML IV PRN ×2 (10:00→12:30)
[2020-10-02] MEDS ORDERED: FUROSEMIDE 40 MG/4 ML VIAL IV ONE (10:00)
[2020-10-02 11:15] LABS: CALCIUM, SERUM 6.9 mg/dL (8.5-10.1); CARBON DIOXIDE 12 mmol/L (21-32); CHLORIDE 116 mmol/L (98-107); CREATININE 3.8 mg/dL (0.6-1.3); GLUCOSE 112 mg/dL (74-106); MAGNESIUM 2.3 mg/dL (1.8-2.4); PHOSPHORUS 6.5 mg/dL (2.5-4.9); POTASSIUM 3.5 mmol/L (3.5-5.1); SODIUM SERUM 143 mmol/L (136-145)
[2020-10-02 11:19] LABS: UREA NITROGEN, BLOOD 150 mg/dL (7-18)
--- NOTE | 2020-10-02 11:56 | NUR ---
AIR CONDITIONING MANAGER NOTE SPOKE WITH DR. JACOME REGARDING HIS DC OF IVF SODIUM BICARB AND WAS PREVIOUSLY ORDERED BY DR. DUNN. PER STATED TO FOLLOW UP WITH DR. DUNN IF HE WANTS TO CONTINUE TO HAVE IVF SODIUM BICARB. PER DR. DUNN MD ORDER TO KEEP PATIENT ON IVF SODIUM BICARB 3AMPS AT 70ML/HR FOR 24 HOURS WITH ABGS TOMORROW MORNING. INFORMED DR. JACOME AND IS OKAY WITH PLAN OF CARE.
--- NOTE | 2020-10-02 17:40 | NUR ---
LIQUOR BRIDGE OPERATOR NOTE PATIENT NOTED WITH HISTORY OF DM. INFORMED DR. JACOME. PER MD ORDER TO PLACE ON MILD SLIDING SCALE ACHS ACCUCHECKS.
[2020-10-02] MEDS ORDERED: DEXTROSE 50%-WATER 50 ML DISP.SYRIN IV PRN (18:00)
[2020-10-02] MEDS ORDERED: INSULIN REGULAR, HUMAN 100 UNIT/ML 3 ML VIAL SQ PRN (18:00)
--- NOTE | 2020-10-02 18:57 | NUR ---
BALL ENDER CLOSING NOTE PATIENT RESTING IN BED AT THIS TIME. NON-VERBAL. CONTINUES ON VENT WITH PATIENT TOLERATING SETTINGS. CONTINUES ON IVF D5W SODIUM BICARBONATE WITH IV LINE TO FINA FREE OF S/S INFECTION. SPIVEY CATHETER PATENT DRAINING CLEAR, YELLOW URINE. ASPIRATION, SAFETY AND FALL PRECAUTIONS MAINTAINED. WILL ENDORSE TO PM SHIFT.
--- NOTE | 2020-10-02 20:00 | NUR ---
RN OPENING NOTE RECEIVED PATIENT RESTING IN BED. AWAKE PATIENT IS NON-VERBAL. PATIENT IS TELE WITH SB,. CONTINUES ON VENT WITH PATIENT TOLERATING SETTINGS WELL. CALL LIGHT WITHIN REACH. SAFETY CHECKS AND PRECAUTIONS MAINTAINED. WILL CONTINUE TO MONITOR.
[2020-10-02] MEDS ORDERED: BLOOD SUGAR DIAGNOSTIC 1 EACH STRIP IN SCH (22:00)
--- NOTE | 2020-10-03 00:30 | NUR ---
RN NOTES: NOTIFIED DR. BARILLAS , PT. GTUBE FEEDING COMING OUT PATIENT,S NOSE ,DUE TO OVER LOAD FLUIDS, PER DR. BARILLAS GTUBE FEEDING HOLD UNTIL FURTHER ORDERS, WILL CONTINUE TO MONITOR.
--- NOTE | 2020-10-03 00:31 | NUR ---
RN NOTES: NOTIFIED DR. BARILLAS , PT. GTUBE FEEDING COMING OUT PATIENT,S NOSE ,DUE TO OVER LOAD FLUIDS / INCREASED EDEMA, PER DR. BARILLAS GTUBE FEEDING HOLD UNTIL FURTHER ORDERS, NEW ORDERS RECIVED AND CARRIED OUT, WILL CONTINUE TO MONITOR.
--- NOTE | 2020-10-03 03:29 | NUR ---
RN NOTES: RAPID RESPONSE. PT.NOTED HR 35 , AND BLOOD PRESSURE DROPPED TO 83/40, PER ICU CHARGE GIVE 250 BOLUS FOR 30 MIN , AFTER BOLUS VITAL SIGNS BP103/ 52,HR 58, RESP 38 ,O2 % 94, TEMP 96.0 ,WILL CONTINUE TO MONITOR.
--- NOTE | 2020-10-03 03:29 | NUR ---
RN NOTES: AROUND 0329 PT . HR 35 CALLED ,RAPID RESPONSE , 250 BOLUS PER ICU CHARGE FOR 30 MIN, PT. BP 83/40,TEMP 97.6, O2% 94 NOTIFIED .
--- NOTE | 2020-10-03 03:30 | NUR ---
RN NOTES: AROUND 0329 PT . HR 35 CALLED ,RAPID RESPONSE , 250 BOLUS PER ICU CHARGE FOR 30 MIN, PT. BP 83/40,TEMP , HR 58, RESP 40 , 97.6, O2% 94 NOTIFIED [address] AWAIT[address] DR. BARILLAS CALL BACK ,WILL CONTINUE WITH CARE.
[2020-10-03 03:56] VITALS: BP 83/40
[2020-10-03 04:15] VITALS: BP 78/40
--- NOTE | 2020-10-03 04:15 | NUR ---
RAPID RESPONSE AND CODE BLUE NURSING NOTES: RN NOTES : AT 0415 CALLED 2ND RAPID, PT. FOUND HR 32 , AND BLOOD PRESSURE DROPPED TO 78/40, PT. UNSTABLE HEART RATE IRREGULAR, ICU CHARGE STARTED LEVOPHED DRIP , AND DOPAMINE DRIP PT. ON THE WAY TO ICU , BECAME PULSELESS, AT 0540 CALLED CODE BLUE AT 0542 CPR STARTED. PRESENT IN THE CODE TEAM-NURSING ADMINISTRATIVE ASSISTANT COORDINATOR RAMU, DR. BARILLAS, DR. BRISCOE, RT TEAM- JETHRO NERI REYNARD, RAFAEL, CLARISSA,ARUNG TEAM- MARJORIE MONTILLA(SLUDGE FILTRATION OPERATOR) ISAAK(RECORDER),YADIRA AND ESTEPHANIE YORK- FINISHED CIGAR MAKER. FAMILY NOTIFIED AROUND 0545. REGARDING THIS CODE BLUE INCIDENT- LEFT VOICEMAIL. AT 0555- FAMILY CALLED BACK- PETRONA GRAHAM AND MADE AWARE OF PATIENT'S CONDITION. PATIENT PRONOUNCED BY DR. BRISCOE AT 0555. [facility] CALLED BY NUT PACKER. CONFIRMATION NUMBER PROVIDED [id number]. CHARGE NURSE SPOKE TO DAUGHTER PETRONA REGARDING PATIENT TO STAY IN THE UNIT FOR TWO HOURS ONLY. AWAITING FOR CALL BACK. Addendum: 10/03/20 at 0855 by LUX GRIFFIN RN NOTIFIED DR. BARILLAS , [facility] D[facility] 400 MG/D5W 250 ML
[2020-10-03] MEDS ORDERED: NOREPINEPHRINE 8 MG in IV NS 0.9% 242 ML IV PRN (04:30)
[2020-10-03] MEDS ORDERED: DOPamine 400 MG/D5W 250 ML RTU BAG IV PRN (05:00)
[2020-10-03] MEDS ORDERED: DOPamine 400 MG/D5W 250 ML RTU BAG IV ONE (05:00)
[2020-10-03] MEDS ORDERED: DOPamine 400MG/D5W 250ML RTU 250 ML ONE (05:05)
[2020-10-03 05:17] VITALS: BP 107/56
[2020-10-03] MEDS ORDERED: Sodium Bicarbonate 150 MEQ in IV D5W 1,000 ML IV PRN (05:30)
[2020-10-03] MEDS ORDERED: NOREPINEPHRINE 4 MG/4 ML AMPUL IV ONE (05:54)
[2020-10-03] MEDS ORDERED: CALCIUM CHLORIDE 1,000 MG/10 ML DISP.SYRIN IV ONE (05:54)
[2020-10-03] MEDS ORDERED: DEXTROSE 50%-WATER 50 ML DISP.SYRIN IV ONE (05:54)
[2020-10-03] MEDS ORDERED: SODIUM BICARBONATE SYR 50 MEQ/50 ML DISP.SYRIN IV ONE (05:54)
[2020-10-03] MEDS ORDERED: EPINEPHRINE (1:10,000) SYRINGE 1 MG/10 ML DISP.SYRIN IVP ONE (05:54)
--- NOTE | 2020-10-03 06:12 | NUR ---
RT RESPONDED TO RAPID RESPONSE CALLED AT 0330, PT WITH BRADYCARDIA. RN LIGIA AND FUNERAL COUNSELOR RENE AT BEDSIDE. RT STAYED AT BEDSIDE TO ASSIST. PT AIRWAY IS PATENT AND ON LTV VENTILATOR ON ORDERED SETTINGS. SUCTION ORAL AND TRACH SUCTION DONE. BEFORE 05:00, RESPONDED TO ANOTHER RAPID RESPONSE CALLED RT AT BEDSIDE WITH LAN STRONG AND FUNERAL COUNSELOR RENE. RT AT BEDSIDE FUNERAL COUNSELOR RENE ADVISE PT WILL BE TRANSFERED TO ICU. RT ON STANDBY FOR TRANSPORT. APPROX AT 05:20 PT CODED DURING TRANSPORT. RT'S AT BEDSIDE PERFORMING CPR AND PROVIDING MANUAL BREATHS WITH AMBU BAG AND O2.
--- NOTE | 2020-10-03 09:00 | NUR ---
tele studio assistant: notes son here to view the body and left at 0910.
--- NOTE | 2020-10-03 09:50 | NUR ---
tele hogshead builder: notes 3 member of family viewed the body for 5 minutes.
--- NOTE | 2020-10-03 10:30 | NUR ---
tele machine ceramic coater: notes brought the body down in the morgue with 1 security and 2 staff.
== END 2020-10-03 05:55 | disposition expired | DRG 870 ==
LOC: ER 17:25 → TRANSITION 18:01 → ICU 09-29 11:02 → MED 09-30 11:24 → TELE 09-30 11:28 → ICU 10-03 05:33
PROVIDERS: ADMIT Nurse Practitioner Acute Care; ATTEND Internal Medicine
PROC: 05H933Z Insertion of Infusion Device into Right Brachial Vein, Percutaneous Approach (ICD-10-PCS; 2020-09-26)
PROC: 5A1955Z Respiratory Ventilation, Greater than 96 Consecutive Hours (ICD-10-PCS; principal; 2020-09-29)
PROC: 5A2204Z Restoration of Cardiac Rhythm, Single (ICD-10-PCS; 2020-10-03)
DX: A41.9 Sepsis, unspecified organism (principal); L89.154 Pressure ulcer of sacral region, stage 4; L89.313 Pressure ulcer of right buttock, stage 3; N17.0 Acute kidney failure with tubular necrosis; E43 Unspecified severe protein-calorie malnutrition; G92 Toxic encephalopathy; R65.21 Severe sepsis with septic shock; J96.10 Chronic respiratory failure, unspecified whether with hypoxia or hypercapnia; N39.0 Urinary tract infection, site not specified; Z99.11 Dependence on respirator [ventilator] status; I69.951 Hemiplegia and hemiparesis following unspecified cerebrovascular disease affecting right dominant side; I13.0 Hypertensive heart and chronic kidney disease with heart failure and stage 1 through stage 4 chronic kidney disease, or unspecified chronic kidney disease; D62 Acute posthemorrhagic anemia; E87.2 Acidosis; E22.2 Syndrome of inappropriate secretion of antidiuretic hormone; E86.1 Hypovolemia; Z93.1 Gastrostomy status; J44.9 Chronic obstructive pulmonary disease, unspecified; Z93.0 Tracheostomy status; R13.10 Dysphagia, unspecified; E78.5 Hyperlipidemia, unspecified; I50.9 Heart failure, unspecified; M24.561 Contracture, right knee; M24.562 Contracture, left knee; K76.1 Chronic passive congestion of liver; Z20.822 Contact with and (suspected) exposure to COVID-19; Z86.16 Personal history of COVID-19; R26.9 Unspecified abnormalities of gait and mobility; B96.89 Other specified bacterial agents as the cause of diseases classified elsewhere; E11.22 Type 2 diabetes mellitus with diabetic chronic kidney disease; N18.9 Chronic kidney disease, unspecified; N13.9 Obstructive and reflux uropathy, unspecified; D50.9 Iron deficiency anemia, unspecified; E87.5 Hyperkalemia; F03.90 Unspecified dementia, unspecified severity, without behavioral disturbance, psychotic disturbance, mood disturbance, and anxiety; Z79.899 Other long term (current) drug therapy; L89.516 Pressure-induced deep tissue damage of right ankle; L89.896 Pressure-induced deep tissue damage of other site; M62.562 Muscle wasting and atrophy, not elsewhere classified, left lower leg; M62.561 Muscle wasting and atrophy, not elsewhere classified, right lower leg; Z79.4 Long term (current) use of insulin
CPT/HCPCS: 31720; 36415; 36600; 71045-TC; 76770-TC; 80048-TC; 80053-TC; 80061-TC; 80076-TC; 81001; 82533; 82570-TC; 82728-TC; 82803-TC; 82962-TC; 83540-TC; 83735-TC; 84100-TC; 84155-TC; 84300-TC; 85025-TC; 86850-TC; 87040-TC; 87081-TC; 87086-TC; 93307-TC; 94002-TC; 94003-TC; 94760-TC; 94762-TC; 94799-TC; 99082-TC; A4623; A6253; A6403; C9113; G0378; J0171; J0692; J0696; J1265; J1644; J1720; J1815; J1940; J2060; J2405; J3490; J7030; J7050; J7060; J7070; U0003